=== PATIENT | male | born 1955 | race American Indian/Alaskan Native ===

== ENCOUNTER 2016-09-22 04:59 | Emergency (ER) | payer OTHER ==
[2016-09-22] MEDS ORDERED: D50W (25GM) IV PRN ×2 (05:21→06:11)
[2016-09-22 05:42] LABS: Hematocrit 27.3 % (35.5-45.6); Mean Corpuscular HGB Conc 33 % (32-34); Mean Corpuscular Hemoglobin 27 pg (28-32); Mean Corpuscular Volume 80 fl (84-94); Platelet Count 173 K/mm3 (140-440); White Blood Count 4.4 K/mm3 (4.5-11.0)
[2016-09-22 05:47] LABS: Red Cell Distribution Width 26.4 % (13.2-15.2)
[2016-09-22 06:01] LABS: Anion Gap 14 mmol/L; BUN/Creatinine Ratio 113.33; Blood Urea Nitrogen 34 mg/dL (9-20); Calcium 7.9 mg/dL (8.4-10.2); Carbon Dioxide 31 mmol/L (22-30); Chloride 97.1 mmol/L (98-107); Glucose 98 mg/dL (75-100); Sodium 139 mmol/L (137-145)
[2016-09-22] MEDS ORDERED: K-DUR PO ONE (06:35)
--- NOTE | 2016-09-22 06:35 | Emergency Department Report ---
ED General Adult HPI - General Chief complaint: Hypoglycemia Stated complaint: LOW BLOOD SUGAR Time Seen by Provider: 09/22/16 06:32 Source: family Mode of arrival: Stretcher Limitations: No Limitations - History of Present Illness Initial comments: The patient presents to this emergency department with his after an apparent hypoglycemic episode. She stated that the patient fell near his bed but did not injure himself. Paramedics found him to have a blood sugar in the 60s. They started an intraosseous line and gave the patient D50. On arrival blood glucose had improved to 86 mg/dL. The tells me that the patient has terminal liver cancer. He has one stent in his gallbladder and another in his bile duct. She doesn't know anything about his ammonia level. He is not received care at this facility before. He has been treated at the [facility]. He is currently in hospice program. The states that the patient is on morphine maintenance. I inquired if the would like us to continue hospital care which would involve further workup and probably intravenous antibiotics as well as additional lab and medical interventions as agreed upon and indicated. Alternatively she could communicate with the hospice program to see if there is availability for inpatient hospice placement. I told the that the patient did look like he could be terminal soon. End-of-life care is certainly appropriate in this setting. She expressed understanding. She spoke with the hospice program. The nurse tells me that she has decided to have the patient transferred to inpatient hospice status. She does not want any further medical intervention at this time. I will personally verify this with the patient's . -: days(s) - Related Data Allergies Allergy/AdvReac Type Severity Reaction Status Date / Time No Known Allergies Allergy Verified 09/22/16 05:41 ED Review of Systems ROS: Stated complaint: LOW BLOOD SUGAR Other details as noted in HPI Comment: Unobtainable due to pts medical conditions ED Past Medical Hx - Past Medical History Previous Medical History?: Yes Hx Diabetes: Yes Hx Liver Disease: Yes Hx of Cancer: Yes Additional medical history: Liver cancer - Surgical History Additional Surgical History: back surgery - Social History Smoking Status: Former Smoker ED Physical Exam - General Limitations: Altered Mental Status General appearance: in no apparent distress, lethargic, cachectic - Head Head exam: Present: atraumatic, normocephalic - Eye Eye exam: Present: scleral icterus (can't exclude) Pupils: Present: miosis - ENT ENT exam: Present: mucous membranes dry - Neck Neck exam: Present: normal inspection. Absent: tenderness, meningismus - Respiratory Respiratory exam: Present: normal lung sounds bilaterally. Absent: respiratory distress - Cardiovascular Cardiovascular Exam: Present: regular rate, normal rhythm. Absent: systolic murmur, diastolic murmur, rubs, gallop - GI/Abdominal GI/Abdominal exam: Present: soft, normal bowel sounds. Absent: distended, tenderness, guarding, rebound, rigid - Rectal Rectal exam: Present: deferred - Extremities Exam Extremities exam: Present: normal inspection - Back Exam Back exam: Present: normal inspection - Neurological Exam Neurological exam: Present: altered - Psychiatric Psychiatric exam: Present: normal mood, flat affect - Skin Skin exam: Present: warm, dry, intact, normal color. Absent: rash ED Course Vital Signs 09/22/16 09/22/16 09/22/16 04:50 05:00 05:07 Temperature Pulse Rate 69 73 71 Respiratory 12 12 Rate Blood Pressure 123/81 121/83 Blood Pressure 121/83 [Left] O2 Sat by Pulse 100 100 Oximetry 09/22/16 09/22/16 09/22/16 05:27 05:30 05:37 Temperature 94.8 F L Pulse Rate 76 Respiratory 11 L Rate Blood Pressure Blood Pressure 133/88 [Left] O2 Sat by Pulse 100 Oximetry 09/22/16 09/22/16 09/22/16 06:00 06:30 07:00 Temperature Pulse Rate 83 78 90 Respiratory 20 20 11 L Rate Blood Pressure 114/72 124/80 136/93 Blood Pressure 114/72 [Left] O2 Sat by Pulse 100 100 99 Oximetry 09/22/16 09/22/16 09/22/16 07:47 09:00 11:00 Temperature 98.0 F Pulse Rate 87 89 Respiratory 14 16 Rate Blood Pressure Blood Pressure 129/87 124/65 [Left] O2 Sat by Pulse 100 99 98 Oximetry - Reevaluation(s) Reevaluation #1: verifies to me that they are trying to transfer the patient to inpatient hospice status. The patient is able to communicate with me now. He states that he would like to eat something. This will be ordered. 09/22/16 07:52 Reevaluation #2: Patient's condition did appear to improve while here. Was able to eat. However as I explained to the family there are many medical conditions that we could not exclude to include life threatening problems such as sepsis or hyperammonemia. Without further medical evaluation and admission to the hospital this would be impossible. The did understand this. They did not want further medical intervention. She signed an aunt deformed. The hospice staff did come to this facility. The patient was transferred to an inpatient hospice status. 09/22/16 12:24 ED Medical Decision Making - Lab Data Result diagrams: 09/22/16 05:31 09/22/16 05:31 Laboratory Results - last 24 hr 09/22/16 09/22/16 05:31 05:31 WBC 4.4 L RBC 3.40 L Hgb 9.0 L Hct 27.3 L MCV 80 L MCH 27 L MCHC 33 RDW 26.4 H Plt Count 173 Sodium 139 Potassium 3.0 L Chloride 97.1 L Carbon Dioxide 31 H Anion Gap 14 BUN 34 H Creatinine 0.3 L Estimated GFR > 60 BUN/Creatinine Ratio 113.33 Glucose 98 Calcium 7.9 L Laboratory Results - last 24 hr 09/22/16 09/22/16 05:31 05:31 WBC 4.4 L RBC 3.40 L Hgb 9.0 L Hct 27.3 L MCV 80 L MCH 27 L MCHC 33 RDW 26.4 H Plt Count 173 Sodium 139 Potassium 3.0 L Chloride 97.1 L Carbon Dioxide 31 H Anion Gap 14 BUN 34 H Creatinine 0.3 L Estimated GFR > 60 BUN/Creatinine Ratio 113.33 Glucose 98 Calcium 7.9 L Critical care attestation.: If time is entered above; I have spent that time in minutes in the direct care of this critically ill patient, excluding procedure time. ED Disposition Clinical Impression: Hypoglycemia, Hypokalemia Liver cancer Qualifiers: Liver malignancy type: unspecified liver malignancy Qualified Code(s): C22.9 - Malignant neoplasm of liver, not specified as primary or secondary Hypothermia Qualifiers: Encounter type: initial encounter Qualified Code(s): T68.XXXA - Hypothermia, initial encounter Disposition: [id number]/TX-[id number] ANOTHER TYPE HLTHCARE Is pt being admited?: No Does the pt Need Aspirin: No Condition: Stable Instructions: Hypokalemia (ED) Additional Instructions: Further care per inpatient hospice staff Referrals: XU HELMS MD [Primary Care Provider] - 3-5 Days Time of Disposition: 12:28
[2016-09-22 12:36] VITALS: BP 136/93
== END 2016-09-22 13:20 | disposition other institution (70) ==
LOC: ED 04:59
DX: E11.649 Type 2 diabetes mellitus with hypoglycemia without coma (principal); E87.6 Hypokalemia; C22.9 Malignant neoplasm of liver, not specified as primary or secondary; Z87.891 Personal history of nicotine dependence
CPT/HCPCS: 36415; 80048; 82962; 85027; 96374; 99285